=== PATIENT | male | born 1975 | race Caucasian/White ===

== ENCOUNTER 2017-08-31 13:45 | Inpatient (IN) | END 2017-09-01 14:45 | disposition home or self-care (01) | DRG 683 ==

== ENCOUNTER 2017-09-04 21:54 | Emergency (ER) | END 2017-09-05 02:03 | disposition left against medical advice (07) ==

== ENCOUNTER 2018-09-27 21:47 | Emergency (ER) | payer SELFPAY ==
[~2018-09-27] VITALS: Ht 160 cm; Wt 74.9 kg
[~2018-09-27 21:47] MED LIST: METO-448 PO; NIFE60TA18 PO
[2018-09-27 21:54] VITALS: Ht 160 cm; Wt 74.9 kg
[2018-09-27] MEDS ORDERED: KETOROLAC 60 MG INJ IM STA (23:31)
--- NOTE | 2018-09-27 23:56 | ERD ---
ER Documentation Chief Complaint Chief Complaint RIGHT KNEE INJ; S/P FALL XTODAY HPI 42-year-old male presents with complaint of right knee pain. States that he was getting out of his car today when he fell in his right knee. Has not taken any treatments. States the pain is currently 6 out of 10. Ambulation makes the pain worse. Denies any numbness, weakness, tingling, bleeding, edema. ROS All systems reviewed and are negative except as per history of present illness. Medications Home Meds Active Scripts Ibuprofen* (Motrin*) 600 Mg Tab, 600 MG PO Q6, #30 TAB Prov:EAMON FUNG 09/28/18 Nifedipine (Afeditab CR) 60 Mg Tablet.sa, 60 MG PO DAILY for 30 Days, #60 TAB Prov:BAILEY DELGADO MD 09/01/17 Metoprolol Tartrate* (Lopressor*) 25 Mg Tab, 25 MG PO BID for 30 Days, #60 TAB 3 Refills Prov:BAILEY DELGADO MD 09/01/17 Allergies Allergies: Coded Allergies: No Known Allergy (Unverified , 08/29/17) PMhx/Soc History of Surgery: Yes (Kidney stones) Anesthesia Reaction: No Hx Neurological Disorder: No Hx Respiratory Disorders: No Hx Cardiac Disorders: No Hx Psychiatric Problems: No Hx Miscellaneous Medical Probl: No Hx Alcohol Use: Yes Hx Substance Use: No Hx Tobacco Use: No Smoking Status: Never smoker FmHx Family History: No diabetes, No coronary disease, No other Physical Exam Vitals Vital Signs Date Temp Pulse Resp B/P (MAP) Pulse Ox O2 O2 Flow FiO2 Time Delivery Rate 09/27/18 99.7 69 19 179/93 99 21:54 (121) Physical Exam Const: No acute distress Head: Atraumatic Eyes: Normal Conjunctiva ENT: Normal External Ears, Nose and Mouth. Neck: Full range of motion. No meningismus. Resp: Clear to auscultation bilaterally Cardio: Regular rate and rhythm, no murmurs Abd: Soft, non tender, non distended. Normal bowel sounds Skin: No petechiae or rashes Back: No midline or flank tenderness Right knee: Tenderness to palpation over the medial aspect of right knee. There is no edema, erythema, ecchymosis, or alban deformity noted. Overlying skin is intact. Compartments are soft and warm. There is no pallor or cyanosis. Range of motion, distal pulses, and distal sensation is intact. There is normal cap refill. Neur: Awake and alert Psych: Normal Mood and Affect Results 24 hrs Current Medications Medications Dose Sig/Carri Start Time Status Last (Trade) Ordered Route PRN Stop Time Admin Dose Reason Admin Ketorolac 60 mg ONCE STAT 09/27/18 DC 09/27/18 Tromethamine IM 23:31 23:39 (Toradol) 09/27/18 23:34 Procedures/MDM DIAGNOSTIC IMAGING REPORT Patient: MECCA OCAMPO : 1975 Age: 42 Sex: M MR #: [id number] DOS: 09/27/18 2331 Ordering MD: EAMON FUNG Location: [facility] Room/Bed: PROCEDURE: X-ray of the right knee. CLINICAL INDICATION: Right knee pain status post trauma. TECHNIQUE: AP, tunnel and lateral views of the right knee were obtained. COMPARISON: FINDINGS: No acute fracture or dislocation. The soft tissues are unremarkable. IMPRESSION: No acute fracture. RPTAT: [facility] Physician Naresh Date Time Electronically viewed and signed by Physician Naresh on 09/28/2018 00:01 RS/ CC: EAMON FUNG [phone] MDM: X-rays taken and results within normal limits. I have low suspicion for neurovascular compromise, compartment syndrome, fracture, osteomyelitis, septic joint, or other emergent condition. Patient advised to use ice for any pain and ibuprofen. Patient discharged with strict ER precautions. Patient advised to follow up with PMD. All questions answered at discharge. Departure Diagnosis: Primary Impression: Knee pain Chronicity: acute Laterality: right Qualified Codes: M25.561 - Pain in right knee Additional Impression: Knee injury Encounter type: initial encounter Laterality: right Qualified Codes: S89.91XA - Unspecified injury of right lower leg, initial encounter Condition: Stable EAMON FUNG September 27, 2018 23:56
[2018-09-28] MEDS ORDERED: IBUP-1542 PO (01:27)
[2018-09-28 01:58] VITALS: BP 155/89; PULSE 72; RESP 16
== END 2018-09-28 01:59 | disposition home or self-care (01) ==
LOC: FTE 21:47
DX: S89.91XA Unspecified injury of right lower leg, initial encounter (principal); W18.39XA Other fall on same level, initial encounter; Y92.9 Unspecified place or not applicable
CPT/HCPCS: 73562; 96372; 99284; J1885